=== PATIENT | male | born 1965 | race Caucasian/White ===

== ENCOUNTER 2022-04-08 09:46 | Emergency (ER) | payer BC ==
[~2022-04-08] VITALS: Ht 167.6 cm; Wt 93.4 kg
[2022-04-08 09:55] VITALS: BP 148/93
--- NOTE | 2022-04-08 09:58 | NUR ---
AMBULATED TO BED 6
--- NOTE | 2022-04-08 10:10 | NUR ---
MD INMAN AT BEDSIDE
--- NOTE | 2022-04-08 10:15 | NUR ---
57YO MALE PT C/O PUNCTURE IN L THUMB XLASTNIGHT. PT STATES PUNCTURING FINGER W/ DRILL . PRESENTS WITH SWELLING AND PUNCTURES FAMILIA AT BASE OF L THUMB. DENIES PAIN , NUMBING OR LOSS OF SENSATION. INSTANT CAP REFILL . PT ABLE TO MOVE FINGER W/ EASE. STATES CLEANING SITE W/ SOAP AND WATER. DENIES N/V/D, CHILLS , FEVERS OR SOB. REASON FOR VISIT IS FOR TDAP AND CHECK UP. PT AAOX4, NO VISIBLE DISTRESS. RESPIRARTIONS EVEN AND UNLABORED. HX: DENIES NKA
[2022-04-08] MEDS ORDERED: IBUP-2213 PO (10:24)
[2022-04-08 10:35] VITALS: BP 148/93
--- NOTE | 2022-04-08 10:35 | NUR ---
Patient discharged with v/s stable. Written and verbal after care instructions FOR PUNCTURE WOUND given and explained. Patient alert, oriented and verbalized understanding of instructions. Ambulatory with steady gait. All questions addressed prior to discharge. ID band removed. Patient advised to follow up with PMD. Rx of IBUPROFEN given. Opportunity to ask questions provided and answered.
--- NOTE | 2022-04-08 10:36 | NUR ---
The patient's care was reviewed and supervised by Regina Sandoval RN.
== END 2022-04-08 10:35 | disposition home or self-care (01) ==
LOC: MED 10:11
DX: S71.132A Puncture wound without foreign body, left thigh, initial encounter (principal); Z90.49 Acquired absence of other specified parts of digestive tract; W31.0XXA Contact with mining and earth-drilling machinery, initial encounter; Y93.89 Activity, other specified; Y92.89 Other specified places as the place of occurrence of the external cause; Y99.8 Other external cause status
CPT/HCPCS: 90471; 90715; 99283